=== PATIENT | male | born 1935 | race Caucasian/White ===

== ENCOUNTER 2021-12-23 16:40 | Emergency (ER) | payer MEDICARE ==
[2021-12-23 17:48] LABS: HEMOGLOBIN 13.7 gm/dl (14.0-17.5); RED BLOOD COUNT 4.48 M/UL (4.20-5.50); WHITE BLOOD COUNT 14.3 K/UL (4.5-11.0)
[2021-12-23 18:20] LABS: BUN/CREATININE RATIO 20 (0-10)
== END 2021-12-24 13:17 | disposition short-term general hospital (02) ==
LOC: ER1 16:40
PROVIDERS: Emergency Medicine
DX: U07.1 COVID-19 (principal); J12.82 Pneumonia due to coronavirus disease 2019; I48.91 Unspecified atrial fibrillation; E78.5 Hyperlipidemia, unspecified; I10 Essential (primary) hypertension; J90 Pleural effusion, not elsewhere classified
CPT/HCPCS: 36600; 71046; 80053; 82550; 82553; 82803; 83880; 84484; 85025; 87040; 93005; 96374; 96375; 99285; J0696; J1940; Q9967; U0002